=== PATIENT | male | born 1965 | race Hispanic/Latino ===

== ENCOUNTER → 2018-03-31 | Outpatient (CLI) | payer OTHER ==
[~2018-03-31] MED LIST: CENTRUM SILVER1 EAC3 PO; GEMFIBROZIL600 MG PO; LISINOPRIL10 MG PO; OMEGA-31000 MG PO
[2018-03-31 09:15] LABS: CREATININE, SERUM 1.27 mg/dL (0.72-1.25)
--- NOTE | 2018-03-31 10:12 | Diagnostic Imaging Report ---
PROCEDURE: CT scan of the chest WITH intravenous contrast, using standard protocol. TECHNIQUE: The chest was scanned utilizing a multidetector helical scanner from the lung apex through the level of the adrenal glands after the IV administration of 100 cc of Isovue 370. Coronal and sagittal multiplanar reformations were obtained. COMPARISON: None. INDICATIONS: LIVER PROBLEMS. LEFT AXILLARY NODULE/SORENESS FINDINGS: Lines/tubes: None. Lungs and Airways: The central airways are patent. There is a 2 mm subpleural right lower lobe pulmonary nodule. No evidence of consolidation or pulmonary edema. Minimal atelectatic changes in the lingula. Pleura: The pleural spaces are clear. Heart and mediastinum: The thyroid gland is normal. No significant mediastinal, hilar or axillary lymphadenopathy is seen. No cardiomegaly. Trace pericardial fluid. The central pulmonary arteries are unremarkable. Soft tissues: Multiple bilateral subcentimeter short axis axillary lymph nodes, left greater than right, which do not meet pathologic size criteria. Abdomen: Please refer to the concurrently performed abdominal CT. Bones: No acute bony findings. Mild degenerative changes of the thoracic spine. IMPRESSION: No acute CT findings in the chest. Bilateral prominent axillary lymph nodes, left greater than right, which do not meet pathologic size criteria. Small 2 mm subpleural right lower lobe pulmonary nodule is likely benign. In the absence of risk factor for malignancy such as smoking, no further follow-up is suggested per modified Fleischner criteria. If there is a risk factor for malignancy an optional follow-up chest CT may be considered in 12 months. Dictated by: LEIGH SHIPMAN M.D. on 03/31/2018 at 10:22 Electronically approved by: LEIGH SHIPMAN M.D. on 03/31/2018 at 10:22
--- NOTE | 2018-03-31 10:19 | Diagnostic Imaging Report ---
PROCEDURE: CT ABDOMEN WITH CONTRAST TECHNIQUE: The abdomen was scanned utilizing a multidetector helical scanner from the diaphragm to the iliac crest after the IV administration of 100 cc of Isovue 370 and the oral administration of water. Coronal and sagittal multiplanar reformations were obtained. COMPARISON: None. INDICATIONS: LIVER PROBLEMS. LEFT AXILLARY NODULE/SORENESS FINDINGS: LOWER THORAX: Please refer to the concurrently performed chest CT for details of intrathoracic findings. HEPATOBILIARY: Mild diffuse fatty liver. There is a 1.4 cm hyperdense lesion in the inferior right hepatic lobe. No biliary ductal dilatation. SPLEEN: No splenomegaly. PANCREAS: No focal masses or ductal dilatation. ADRENALS: No adrenal nodules. KIDNEYS: No hydronephrosis, stones, or solid mass lesions. PERITONEUM / RETROPERITONEUM: No free air or fluid. LYMPH NODES: No lymphadenopathy. VESSELS: Unremarkable. GI TRACT: Visualized portions of the bowel demonstrate no distention or wall thickening. BONES AND SOFT TISSUES: No acute bony findings. No suspicious lytic or blastic lesions. IMPRESSION: Indeterminate 1.4 cm hyperdense lesion in the inferior right hepatic lobe. A liver protocol MRI or CT is recommended for further evaluation. Diffuse mild fatty liver. Dictated by: LEIGH SHIPMAN M.D. on 03/31/2018 at 10:29 Electronically approved by: LEIGH SHIPMAN M.D. on 03/31/2018 at 10:29
== END ==
LOC: CT 08:12
PROVIDERS: ATTEND Internal Medicine Gastroenterology
DX: R16.0 Hepatomegaly, not elsewhere classified (principal)
CPT/HCPCS: 36415; 71260; 74160; 82565; 84520

== ENCOUNTER → 2018-04-10 | Outpatient (CLI) | payer OTHER ==
[~2018-04-10] MED LIST changes: +GADOBENATE DIMEGLUMINE 1 ML IV ONE
--- NOTE | 2018-04-10 14:03 | Diagnostic Imaging Report ---
MRI abdomen CPT code: 27344 Indication: Liver mass Technique: Axial T1 nonfat sat in and out of phase, axial T2 fat sat, coronal T2 nonfat sat, axial DWI and ADC MR images of the abdomen were obtained before and after the administration of 15 cc of gadolinium. Axial T1 fat sat GRE dynamic images in precontrast, arterial, venous and delayed phases were obtained. Comparison: CT chest and abdomen 04/10/2018 Findings: All pulse sequences are motion degraded. Liver: Normal T1 and T2 signal. A uniformly hypervascular mass in segment [address] is not visible on MRI on any pulse sequence. There are hepatic lesions. Gallbladder: Present. No evidence of gallstone or gallbladder wall thickening. Biliary tree: Present. No wall thickening, gallstone or ductal dilatation. Pancreas: Normal T1 and T2 signal. Normal enhancement of the parenchyma. No mass. Spleen: Normal size and signal. No mass. Adrenal glands: No evidence for mass. Kidneys: A cyst in the lower pole of the right kidney measures 8 mm. No solid mass in either kidney. No hydronephrosis. Lymph nodes: No lymphadenopathy Bowel: Stomach and visualized portions of the small bowel and large bowel are normal in diameter with normal wall thickness. Lung bases: Clear. Peritoneum/retroperitoneum: No free fluid or fluid collection. Bones: Normal marrow signal. No focal osseous lesions. IMPRESSION: The hypervascular liver lesion identified on CT is not visible on MRI, likely due to motion artifact. Recommend CT dedicated to the liver to overcome this limitation. The remainder of the liver is normal. Signed by: Dr. Hardeep English MD on 04/10/2018 2:00 PM
== END ==
LOC: MRI 08:35
PROVIDERS: ATTEND Internal Medicine Gastroenterology
DX: R16.0 Hepatomegaly, not elsewhere classified (principal)
CPT/HCPCS: 74183

== ENCOUNTER → 2018-04-28 | Outpatient (CLI) | payer OTHER ==
[~2018-04-28] MED LIST changes: -GADOBENATE DIMEGLUMINE 1 ML IV ONE; +IOPAMIDOL 370 MG/ML 200 ML INFUS..BTL INJ ONE; +SODIUM CHLORIDE 0.9% 50ML 50 ML ONE
[2018-04-28 11:03] LABS: BLOOD UREA NITROGEN 11 mg/dL (7-26); BUN/CREATININE RATIO 9 (6-25); EST GLOMERULAR FILTRATION RATE > 60 ML/MIN (60-)
--- NOTE | 2018-04-28 13:57 | Diagnostic Imaging Report ---
ADDENDUM #1 Addendum: CT abdomen with and without contrast 04/28/2018 and MRI abdomen with and without contrast 04/10/[address] chest, abdomen 03/31/2018 were reviewed. Stable 1.8 x 1.5 cm mildly ill-defined arterially enhancing lesion in hepatic segment V (series 3, image 48) when compared to CT abdomen 03/31/2018. Exam is limited by lack of true portal venous phase. The lesion is iso to minimally hypointense on delayed phase. No definite washout or pericapsular enhancement. There is an additional stable 6 mm arterially enhancing lesion in hepatic segment VII (3, image 20) which is not visualized/isodense on the delayed phase. No washout. No corresponding abnormality for any of these lesions is noted on T1 or T2-weighted images, DWI or postcontrast images on MRI dated 04/10/2018. That exam shows moderate hepatic steatosis (hepatic fat fraction 23.5%, hepatic fat percentage 15.2%), however, neither of these lesions show lack of signal dropout on out of phase images, as would be expected for nonfatty replaced liver. The liver contour is unremarkable, without evidence of cirrhosis Impression: 1. Stable 6 mm and 1.8 cm ill-defined arterially enhancing lesions in hepatic segment VII and V, respectively, which are likely benign given the lack of cirrhotic features and lack of corresponding abnormalities on MRI, probably represent small shunts or transient perfusion abnormalities. No suspicious characteristics. Recommend follow-up in 3-[address] abdomen with dual phase (arterial and portal venous) to document stability. Signed by: Dr. Jonathon Landin M.D. on 05/04/2018 10:04 AM ORIGINAL REPORT EXAM: CT Abdomen WITHOUT and WITH contrast INDICATION: ^[id number] ^[id number] ^LIVER MASS COMPARISON: CT dated 04/20/2018 and MRI of the abdomen dated 04/10/2018 TECHNIQUE: Abdomen was scanned utilizing a multidetector helical scanner from the lung base to the iliac crest before and after administration of IV contrast. Coronal and sagittal reformations were obtained. Dose modulation, iterative reconstruction, and/or weight based adjustment of the mA/kV was utilized to reduce the radiation dose to as low as reasonably achievable. Liver mass protocol was performed. Scan was performed pre-, arterial, portal venous, and 5 minute delayed phase. Please note that due to technical issues portal venous phase was not obtained. IV CONTRAST: 100 mL of Isovue-370 ORAL CONTRAST: Water COMPLICATIONS: None RADIATION DOSE: Total DLP: 797.94 mGy*cm Estimated effective dose: (DLP x 0.015 x size factor) mSv CTDIvol has been reviewed. It is below the limits set by the Radiation Protocol Committee (RPC). FINDINGS: LINES and TUBES: None. LOWER THORAX: Unremarkable HEPATOBILIARY: Unchanged ill-defined arterially enhancing 1.8 x 1.5 cm lesion in inferior right hepatic lobe segment 5 (series 3, image 48). This lesion becomes isodense or minimally hypodense on delayed phase. No hepatic contour nodularity. No biliary ductal dilation. Biliary Ductal Dilation: None Portal Vein: Patent Hepatic Vein: Patent Hepatic Artery anatomy: Conventional GALLBLADDER: No radio-opaque stones or sludge. No wall thickening. SPLEEN: No splenomegaly. PANCREAS: No focal masses or ductal dilatation. ADRENALS: No adrenal nodules KIDNEYS/URETERS: Kidneys enhance symmetrically. No hydronephrosis. No adrenal mass. Unchanged right renal midpole subcentimeter hypodensity, likely a cyst. No stones. GI TRACT: Visualized bowel loops are unremarkable. No evidence of bowel obstruction. Gastric wall thickening, likely due to underdistention. Partially visualized normal appendix. LYMPH NODES: No lymphadenopathy. VESSELS: Unremarkable. PERITONEUM / RETROPERITONEUM: No free air or fluid. BONES: Unremarkable. SOFT TISSUES: Small fat-containing umbilical hernia. IMPRESSION: Portal venous phase was not obtained due to technical issues, limiting evaluation. Unchanged ill-defined arterially enhancing inferior right hepatic lobe lesion which becomes isodense or minimally hypodense on delayed phase, likely to be related to portosystemic shunting. Recommend follow-up with liver mass protocol CT in 3-6 months. Additionally, a right upper quadrant ultrasound can also be helpful to further evaluate. Signed by: Dr. Mitchell Engle MD on 04/28/2018 1:54 PM
== END ==
LOC: CT 09:27
PROVIDERS: ATTEND Internal Medicine Gastroenterology
DX: R16.0 Hepatomegaly, not elsewhere classified (principal)
CPT/HCPCS: 36415; 74170; 82565; 84520; Q9967

== ENCOUNTER → 2021-01-06 | Outpatient (CLI) | payer OTHER ==
[~2021-01-06] MED LIST changes: +GADOBENATE DIMEGLUMINE 1 ML IV ONE; -IOPAMIDOL 370 MG/ML 200 ML INFUS..BTL INJ ONE
== END ==
LOC: MRI 08:49
PROVIDERS: ATTEND Internal Medicine Gastroenterology
DX: R16.0 Hepatomegaly, not elsewhere classified (principal)
CPT/HCPCS: 74183